=== PATIENT | female | born 1990 | race Caucasian/White ===

== ENCOUNTER 2017-09-12 20:51 | Emergency (ER) | payer BC, MEDICAID ==
[~2017-09-12] VITALS: Ht 162.6 cm; Wt 91.8 kg
[~2017-09-12 20:51] MED LIST: ACET50TA PO; ACET65TA OR; ANUS2.5C2 PR; CIPR25SS PO; CIPR500T4 OR; DOCU10ELUD PO; IBUP80TA PO; MOM30SS PO; NEUR300C PO; No Historical Meds; OXYC10TA97 OR; PERC7.5T8 OR; PRENTAB9 PO; SOMA350T PO; TIZA4CAP3 PO; [UNRECOGNIZED DRUG - CODE] PO
[2017-09-12] MEDS ORDERED: ZOFR4TAB3 PO (21:04)
[2017-09-12] MEDS ORDERED: NS 1,000 ML IV ONE (21:30)
[2017-09-12] MEDS ORDERED: ONDANSETRON 4MG/2ML VIAL (J2405) IV ONE (21:30)
[2017-09-12] MEDS ORDERED: MORPHINE 4 MG/ML 1ML SYRINGE IV PRN (21:30)
[2017-09-12 22:10] LABS: BASO % 0.2 % (0.0-1.0); EOS # 0.1 10^3/uL (0.0-0.50); EOS % 0.4 % (0.0-3.0); IMMATURE GRANULOCYTE % 0.4 % (0-0); LYMPH # 1.1 10^3/uL (1.5-6.5); LYMPH % 9.8 % (24.0-44.0); MEAN CORPUSCULAR HEMOGLOBIN 30.6 pg (27.0-33.0); MEAN CORPUSCULAR HGB CONC 34.5 g/dl (32.0-36.5); MEAN CORPUSCULAR VOLUME 88.6 fl (80.0-96.0); MONO # 0.4 10^3/uL (0.0-0.8); MONO % 3.6 % (0.0-5.0); NEUTROPHILS # 9.7 10^3/uL (1.8-7.7); NEUTROPHILS % 85.6 % (36.0-66.0); PLATELET COUNT, AUTOMATED 296 10^3/uL (150-450); RED CELL DISTRIBUTION WIDTH 12.1 % (11.5-14.5); WHITE BLOOD COUNT 11.3 10^3/uL (4.0-10.0)
[2017-09-12] MEDS ORDERED: KETOROLAC 30 MG/ML VIAL (J1885) IV ONE (22:15)
[2017-09-12 22:34] LABS: ALBUMIN 4.3 GM/DL (3.2-5.2); ALBUMIN/GLOBULIN RATIO 1.16 (1.00-1.93); ALKALINE PHOSPHATASE 69 U/L (45-117); ALT/SGPT 33 U/L (12-78); ANION GAP 6 MEQ/L (8-16); AST/SGOT 18 U/L (15-37); BILIRUBIN,DIRECT 0.2 MG/DL (0.0-0.2); BILIRUBIN,TOTAL 0.7 MG/DL (0.2-1.0); BLOOD UREA NITROGEN 13 MG/DL (7-18); CALCIUM LEVEL 8.7 MG/DL (8.5-10.1); CARBON DIOXIDE LEVEL 28 MEQ/L (21-32); CHLORIDE LEVEL 103 MEQ/L (98-107); GLOMERULAR FILTRATION RATE > 60.0 (>60); GLUCOSE, FASTING 95 MG/DL (70-105); POTASSIUM SERUM 3.2 MEQ/L (3.5-5.1); SODIUM LEVEL 137 MEQ/L (136-145)
--- NOTE | 2017-09-12 23:10 | REPUSA ---
CT of the abdomen and pelvis without contrast Clinical statement: Pain. Technique: Multiple axial CT images were obtained from the base of the lungs to the floor of the pelv is utilizing 5 mm axial slices without administration of contrast. Coronal and sagittal reconstructio ns were also obtained. Comparison: 06/12/2016. Findings: Chest: The visualized lung bases are clear. Abdomen: The kidneys are normal in size bilaterally. There aren't numerous low attenuation lesions wi thin both kidneys, likely representing cysts. Several tiny punctate nonobstructing stones are seen in the left kidney. There is no evidence of hydronephrosis. Numerous dense foci are seen throughout the gallbladder consistent with gallstones. There is no pericholecystic inflammatory changes or biliary ductal dilatation. The liver, spleen, pancreas, and adrenal glands are unremarkable. The aorta demons trates normal caliber and contour. There is no abdominal lymphadenopathy or ascites. Pelvis: The bowel is unremarkable, with no obstructive or inflammatory changes. The appendix is linda l. The urinary bladder is within normal limits. There is no pelvic lymphadenopathy or ascites. The ot her pelvic structures appear unremarkable. Bones: There are no suspicious osseous abnormalities seen. Surgical hardware in the lower thoracic an d upper lumbar spine is grossly intact. Impression: 1. Nonobstructing left renal nephrolithiasis. 2. Stable bilateral simple renal cysts. 3. Cholelithiasis without evidence of acute cholecystitis. 4. No obstructive or inflammatory bowel changes.
[2017-09-12 23:56] VITALS: BP 114/66
== END 2017-09-12 23:58 | disposition home or self-care (01) ==
LOC: M ED 20:51
DX: R10.9 Unspecified abdominal pain (principal); R19.7 Diarrhea, unspecified; N20.0 Calculus of kidney; K80.70 Calculus of gallbladder and bile duct without cholecystitis without obstruction; E28.2 Polycystic ovarian syndrome; Z98.890 Other specified postprocedural states; Z91.018 Allergy to other foods; Z91.030 Bee allergy status; Z88.2 Allergy status to sulfonamides
CPT/HCPCS: 74176; 80048; 80076; 81001; 81025; 83690; 85025; 96361; 96374; 96375; 99284; J1885; J2405

== ENCOUNTER → 2017-12-23 | Outpatient (REF) | payer BC, MEDICAID ==
[2017-12-23 17:35] LABS: INFLUENZA A AMPLIFICATION POSITIVE (NEGATIVE); INFLUENZA B AMPLIFICATION NEGATIVE (NEGATIVE); RSV AMPLIFICATION NEGATIVE (NEGATIVE)
== END ==
LOC: M LAB REF 16:35
DX: J11.1 Influenza due to unidentified influenza virus with other respiratory manifestations (principal)
CPT/HCPCS: 87631

== ENCOUNTER 2018-03-10 18:56 | Emergency (ER) | payer BC, MEDICAID ==
[2018-03-10] MEDS: ONDANSETRON 4MG/2ML VIAL (J2405) IV (20:30)
[2018-03-10] MEDS: KETOROLAC 30 MG/ML VIAL (J1885) IV (20:30)
[2018-03-10] MEDS: NS 1,000 ML IV (20:31)
[2018-03-10 20:36] LABS: KETONE, URINE AUTO RFX NEGATIVE (NEGATIVE); MUCUS, URINE RFX MODERATE (NEGATIVE); RBC, URINE AUTO RFX 43 /HPF (0-3); SPECIFIC GRAVITY UR AUTO RFX 1.017 (1.002-1.035); SQUAM EPITHELIAL CELL UR AURFX 9 /HPF (0-6)
[2018-03-10 20:40] LABS: LEUKOCYTE ESTERASE UR AUTO RFX 3+ (NEGATIVE); NITRITE, URINE AUTO RFX POSITIVE (NEGATIVE); WBC, URINE AUTO RFX TNTC /HPF (0-3)
[2018-03-10 20:41] LABS: BASO % 0.2 % (0.0-1.0); EOS # 0.1 10^3/uL (0.0-0.50); EOS % 0.6 % (0.0-3.0); HEMOGLOBIN 13.6 g/dl (12.0-15.5); IMMATURE GRANULOCYTE % 0.2 % (0-3.0); LYMPH # 2.8 10^3/uL (1.5-6.5); LYMPH % 22.7 % (24.0-44.0); MEAN CORPUSCULAR HEMOGLOBIN 30.7 pg (27.0-33.0); MEAN CORPUSCULAR VOLUME 90.3 fl (80.0-96.0); MONO # 0.7 10^3/uL (0.0-0.8); MONO % 5.3 % (0.0-5.0); NEUTROPHILS # 8.7 10^3/uL (1.8-7.7); PLATELET COUNT, AUTOMATED 299 10^3/uL (150-450); RED BLOOD COUNT 4.43 10^6/uL (4.00-5.40); RED CELL DISTRIBUTION WIDTH 12.5 % (11.5-14.5); WHITE BLOOD COUNT 12.3 10^3/uL (4.0-10.0)
[2018-03-10 20:50] LABS: ALBUMIN 4.5 GM/DL (3.2-5.2); ALBUMIN/GLOBULIN RATIO 1.07 (1.00-1.93); ALKALINE PHOSPHATASE 72 U/L (45-117); ALT/SGPT 22 U/L (12-78); ANION GAP 7 MEQ/L (8-16); AST/SGOT 15 U/L (7-37); BILIRUBIN,DIRECT 0.1 MG/DL (0.0-0.2); BILIRUBIN,TOTAL 0.5 MG/DL (0.2-1.0); BLOOD UREA NITROGEN 11 MG/DL (7-18); CALCIUM LEVEL 9.1 MG/DL (8.5-10.1); CARBON DIOXIDE LEVEL 29 MEQ/L (21-32); CHLORIDE LEVEL 105 MEQ/L (98-107); CREATININE FOR GFR 0.77 MG/DL (0.55-1.30); GLOMERULAR FILTRATION RATE > 60.0 (>60); GLUCOSE, FASTING 93 MG/DL (70-100); POTASSIUM SERUM 3.7 MEQ/L (3.5-5.1); SODIUM LEVEL 141 MEQ/L (136-145); TOTAL PROTEIN 8.7 GM/DL (6.4-8.2)
[2018-03-10] MEDS: cefTRIAXone SOD 1 GM in D5W MINI-BAG PLUS 50 ML IV (21:08)
== END 2018-03-10 22:01 | disposition home or self-care (01) ==
LOC: M ED 18:56
DX: N30.00 Acute cystitis without hematuria (principal); Q61.3 Polycystic kidney, unspecified; N20.0 Calculus of kidney; K80.20 Calculus of gallbladder without cholecystitis without obstruction; F33.9 Major depressive disorder, recurrent, unspecified; F41.9 Anxiety disorder, unspecified; Z86.69 Personal history of other diseases of the nervous system and sense organs; Z98.890 Other specified postprocedural states; Z88.2 Allergy status to sulfonamides; Z91.018 Allergy to other foods; Z91.030 Bee allergy status
CPT/HCPCS: J2405

== ENCOUNTER → 2018-04-25 | Outpatient (REF) | payer BC, OTHER, MEDICAID ==
[2018-04-25 16:25] LABS: URINE TOTAL PROTEIN 13.5 MG/DL (0-12)
[2018-04-25 20:23] LABS: CREATININE 24 HOUR, URINE 1287.5 MG/24HR (600-1800); TOTAL PROTEIN 24 HOUR URINE 168.7 MG/24HR (50-150); TOTAL VOLUME, URINE 1250 ML
== END ==
LOC: M LAB REF 15:27
DX: Z34.81 Encounter for supervision of other normal pregnancy, first trimester (principal); Z3A.09 9 weeks gestation of pregnancy
CPT/HCPCS: 81050

== ENCOUNTER → 2018-05-22 | Outpatient (REF) | payer BC, MEDICAID | LOC: M LAB REF 12:54 | DX: Z34.81 Encounter for supervision of other normal pregnancy, first trimester (principal) | CPT/HCPCS: 87086 ==

== ENCOUNTER → 2018-07-04 | Outpatient (CLI) | payer MEDICAID, BC | LOC: M RAD 09:29 | DX: Z34.82 Encounter for supervision of other normal pregnancy, second trimester (principal); Z36.89 Encounter for other specified antenatal screening; Z3A.19 19 weeks gestation of pregnancy | CPT/HCPCS: 76811 ==

== ENCOUNTER → 2018-07-24 | Outpatient (CLI) | payer MEDICAID | LOC: M RAD 10:02 | DX: O09.292 Supervision of pregnancy with other poor reproductive or obstetric history, second trimester (principal) | CPT/HCPCS: 76816 ==

== ENCOUNTER 2018-09-04 12:55 | Outpatient (CLI) | payer MEDICAID ==
[2018-09-04] MEDS: LACTATED RINGER'S 1000 ML IV ×2 (13:30→20:35)
[2018-09-04 13:56] LABS: APPEARANCE, URINE CLOUDY (CLEAR); BACTERIA, URINE AUTO 1+ (NEGATIVE); BILIRUBIN, URINE AUTO NEGATIVE (NEGATIVE); BLOOD, URINE BLOOD NEGATIVE (NEGATIVE); COLOR, URINE YELLOW (YELLOW); GLUCOSE, URINE (UA) AUTO NEGATIVE (NEGATIVE); KETONE, URINE AUTO NEGATIVE (NEGATIVE); LEUKOCYTE ESTERASE, URINE AUTO NEGATIVE (NEGATIVE); MUCUS, URINE SMALL (NEGATIVE); NITRITE, URINE AUTO NEGATIVE (NEGATIVE); PROTEIN, URINE AUTO NEGATIVE (NEGATIVE); RBC, URINE AUTO 0 /HPF (0-3); SPECIFIC GRAVITY URINE AUTO 1.017 (1.002-1.035); SQUAMOUS EPITHELIAL CELL UR AU 4 /HPF (0-6); UROBILINOGEN, URINE AUTO 0.2 mg/dL (0.0-2.0); WBC, URINE AUTO 0 /HPF (0-3)
[2018-09-04 14:09] LABS: TOTAL PROTEIN,RANDOM URINE 34.2 MG/DL (0.0-12.0)
[2018-09-04 15:33] LABS: HEMATOCRIT 35.6 % (36.0-47.0); HEMOGLOBIN 11.9 g/dl (12.0-15.5); MEAN CORPUSCULAR HEMOGLOBIN 31.6 pg (27.0-33.0); MEAN CORPUSCULAR HGB CONC 33.4 g/dl (32.0-36.5); MEAN CORPUSCULAR VOLUME 94.4 fl (80.0-96.0); PLATELET COUNT, AUTOMATED 183 10^3/uL (150-450); RED BLOOD COUNT 3.77 10^6/uL (4.00-5.40); RED CELL DISTRIBUTION WIDTH 12.6 % (11.5-14.5); WHITE BLOOD COUNT 17.4 10^3/uL (4.0-10.0)
[2018-09-04 16:00] LABS: ALT/SGPT 21 U/L (12-78); ANION GAP 9 MEQ/L (8-16); AST/SGOT 14 U/L (7-37); BILIRUBIN,TOTAL 0.3 MG/DL (0.2-1.0); BLOOD UREA NITROGEN 7 MG/DL (7-18); CALCIUM LEVEL 8.5 MG/DL (8.5-10.1); CARBON DIOXIDE LEVEL 25 MEQ/L (21-32); CHLORIDE LEVEL 107 MEQ/L (98-107); CREATININE FOR GFR 0.59 MG/DL (0.55-1.30); GLOMERULAR FILTRATION RATE > 60.0 (>60); GLUCOSE, FASTING 97 MG/DL (70-100); LDH LACTATE DEHYDROGENASE 144 U/L (84-246); PHOSPHORUS LEVEL 3.7 MG/DL (2.5-4.9); POTASSIUM SERUM 3.9 MEQ/L (3.5-5.1); SODIUM LEVEL 141 MEQ/L (136-145); URIC ACID 3.3 MG/DL (2.6-6.0)
[2018-09-04] MEDS: PROMETHAZINE INJ 25 MG/ML VIAL (J2550) IM (16:37)
[2018-09-04] MEDS: MORPHINE 10 MG/ML 1ML VIAL (J2270) SC (16:38)
[2018-09-04] MEDS: LR 1,000 ML IV ×2 (16:48→20:35)
[2018-09-04] MEDS: TAMSULOSIN 0.4 MG CAP PO (17:43)
[2018-09-04] MEDS: MORPHINE 10 MG/ML 1ML VIAL (J2270) IV ×3 (20:34→22:41)
[2018-09-05] MEDS: PERCOCET 5MG/325MG TAB PO ×4 (00:15→12:33)
[2018-09-05] MEDS: LR 1,000 ML IV ×2 (05:29→13:37)
[2018-09-05] MEDS ORDERED: ONDANSETRON 4 MG ORAL DISINTEGRATING TAB (Q0162 PER 1MG) PO (07:15)
[2018-09-05] MEDS: TAMSULOSIN 0.4 MG CAP PO (08:39)
== END 2018-09-05 18:20 | disposition home or self-care (01) ==
LOC: M LDO 12:55
DX: O26.892 Other specified pregnancy related conditions, second trimester (principal); R10.9 Unspecified abdominal pain; O99.619 Diseases of the digestive system complicating pregnancy, unspecified trimester; K80.20 Calculus of gallbladder without cholecystitis without obstruction; Z3A.26 26 weeks gestation of pregnancy
CPT/HCPCS: J2270

== ENCOUNTER → 2018-09-12 | Outpatient (CLI) | payer MEDICAID ==
[2018-09-12 15:24] LABS: GLUCOSE CHALLENGE TEST 1 HOUR 129 MG/DL (LESS THAN 140)
== END ==
LOC: M SMT 08:32
DX: Z36.89 Encounter for other specified antenatal screening (principal); Z3A.00 Weeks of gestation of pregnancy not specified
CPT/HCPCS: 82950

== ENCOUNTER → 2018-11-12 | Outpatient (CLI) | payer MEDICAID ==
[~2018-11-12] MED LIST changes: +CIPR-249 PO; +FERR325T3 PO; +FLOM0.4C39 PO; +IBUP-1114 PO; +MAPA500T2 PO; +OXYC1TAB23 PO; +TIZA4CAP PO; -TIZA4CAP3 PO; +TYLE-45 PO; +ZOFR4TAB14 PO
[2018-11-12 13:26] LABS: ALT/SGPT 17 U/L (12-78); BILIRUBIN,TOTAL 0.3 MG/DL (0.2-1.0); CREATININE FOR GFR 0.58 MG/DL (0.55-1.30); GLOMERULAR FILTRATION RATE > 60.0 (>60); LDH LACTATE DEHYDROGENASE 179 U/L (84-246); URIC ACID 3.5 MG/DL (2.6-6.0)
[2018-11-12 13:29] LABS: HEMATOCRIT 34.7 % (36.0-47.0); HEMOGLOBIN 11.5 g/dl (12.0-15.5); MEAN CORPUSCULAR HEMOGLOBIN 30.8 pg (27.0-33.0); MEAN CORPUSCULAR HGB CONC 33.1 g/dl (32.0-36.5); PLATELET COUNT, AUTOMATED 230 10^3/uL (150-450); RED BLOOD COUNT 3.73 10^6/uL (4.00-5.40); WHITE BLOOD COUNT 9.9 10^3/uL (4.0-10.0)
[2018-11-12 14:30] LABS: CREATININE,RANDOM URINE 59.4 MG/DL; TOTAL PROTEIN,RANDOM URINE 32.6 MG/DL (0.0-12.0)
== END ==
LOC: M SMT 09:03
PROVIDERS: ATTEND Advanced Practice Midwife
DX: Z34.83 Encounter for supervision of other normal pregnancy, third trimester (principal); Z36.89 Encounter for other specified antenatal screening

== ENCOUNTER 2018-11-20 09:38 | Inpatient (IN) | payer MEDICAID ==
[2018-11-20] VITALS (12 sets, daily range): BP systolic 132–162; BP diastolic 85–100
[~2018-11-20] VITALS: Ht 167.6 cm; Wt 93.3 kg
[~2018-11-20 09:38] MED LIST changes: -FERR325T3 PO; -IBUP-1114 PO
[2018-11-20] MEDS: miSOPROStol 50 MCG 1/2 TAB (S0191) SL SCH ×3 (10:28→18:41)
[2018-11-20 10:44] LABS: HEMATOCRIT 33.4 % (36.0-47.0); HEMOGLOBIN 11.4 g/dl (12.0-15.5); MEAN CORPUSCULAR HEMOGLOBIN 30.3 pg (27.0-33.0); MEAN CORPUSCULAR HGB CONC 34.1 g/dl (32.0-36.5); MEAN CORPUSCULAR VOLUME 88.8 fl (80.0-96.0); PLATELET COUNT, AUTOMATED 215 10^3/uL (150-450); RED BLOOD COUNT 3.76 10^6/uL (4.00-5.40); WHITE BLOOD COUNT 12.2 10^3/uL (4.0-10.0)
[2018-11-20 11:07] LABS: ALT/SGPT 12 U/L (12-78); BILIRUBIN,TOTAL 0.4 MG/DL (0.2-1.0); CREATININE FOR GFR 0.45 MG/DL (0.55-1.30); GLOMERULAR FILTRATION RATE > 60.0 (>60); LDH LACTATE DEHYDROGENASE 174 U/L (84-246); URIC ACID 3.2 MG/DL (2.6-6.0)
--- NOTE | 2018-11-20 11:13 | HPE ---
DATE: 11/20/2018 CHIEF COMPLAINT: Induction of labor secondary to preeclampsia. HISTORY OF PRESENT ILLNESS: Merary is a 28-year-old (G) 3, para (P) 2-0-0-1 at 37 weeks 2 days estimated gestation. Estimated date of confinement is 12/09/2018 confirmed by first trimester ultrasound of 04/24/2018. She is presenting for induction of labor secondary to preeclampsia. She received two doses of betamethasone last week. She denies any uterine contractions, leakage of fluid, bleeding, or discharge. She is feeling the baby move. LABS: Blood type is B positive. Group B streptococcus (GBS) negative. Rubella immune. HIV negative. Gonorrhea negative. Chlamydia negative. Hepatitis B surface antigen negative. VDRL nonreactive. Diabetes screen 129. Blood pressures in the office have ranged from 120 to 160 systolic over 62/92 diastolic. Total weight gain is 15 pounds. OB ULTRASOUND: 07/04/2018 anatomy showed an anterior placenta with a left choroid plexus cyst. 07/24/2018 followup anatomy showed left choroid plexus cyst resolved. PAST OBSTETRICAL HISTORY: 1. In 2010 she delivered a male at 42 weeks 1 day estimated gestational age via normal spontaneous vaginal delivery, forceps assisted, who weighed 9 pounds 9 ounces. The infant at 9 months secondary to infection and seizure. 2. In 2014 patient delivered a male infant at 39 weeks 2 days estimated gestational age via normal spontaneous delivery weighing 7 pounds 9 ounces and she was induced secondary to preeclampsia. PAST MEDICAL HISTORY: 1. Polycystic kidney disease, followed by Dr. Turner. 2. Renal stone. 3. History of preeclampsia. 4. Depression. MEDICATIONS: - vitamins and Tylenol as needed. PAST SURGICAL HISTORY: 2013 spinal fusion, eye surgery. PAST FAMILY HISTORY: Polycystic kidney disease and cardiac disease. ALLERGIES: SULFA MEDICATIONS - reaction is hives. SOCIAL HISTORY: Patient is single. Denies tobacco, alcohol, or drug use. EXAMINATION: VITAL SIGNS: Temperature 98.5, heart rate 125, blood pressure 139/100, respiratory rate 18. ABDOMEN: Gravid. STERILE VAGINAL EXAM: 2 cm dilated, 50% effaced, -2 station. MONITOR: Category 1 tracing, baseline is 140 beats per minute, moderate variability, positive accelerations, no decelerations. TOCO: No contractions. ASSESSMENT AND PLAN: 1. Intrauterine (IUP) at 37 and 2 is presenting for induction of labor secondary to preeclampsia. We will start with misoprostol. 2. Group B streptococcus (GBS) negative. Does not need penicillin. 3. Anticipate normal spontaneous vaginal delivery. My faculty preceptor for this patient encounter was physically present during the encounter and was fully available. All aspects of the patient interview, examination, medical decision making process, and medical care plan development were reviewed and approved by the faculty preceptor. The faculty preceptor is aware and concurs with the plan as stated in the body of this note and will attest to such by his/her cosignature.
[2018-11-20] MEDS: LR 1,000 ML IV SCH (20:20)
[2018-11-20] MEDS ORDERED: OXYTOCIN DRIP 30 UNITS in APPROPRIATE DILUENT 1 EA IV SCH (20:30)
[2018-11-21] VITALS (37 sets, daily range): BP systolic 116–163; BP diastolic 67–106
[2018-11-21] MEDS ORDERED: diphenhydrAMINE 50 MG CAP PO STA (02:51)
[2018-11-21] MEDS: LR 1,000 ML IV SCH (04:20)
--- NOTE | 2018-11-21 08:03 | IPNPDOC ---
Text Note Date of Service The patient was seen on 11/21/18. NOTE Feeling discouraged, remains comfortable with UC Pitocin @ 16mu UC Q 2-3 minutes x 60 seconds, mild FH 130, Cat I SVE 3/80/-2, AROM moderate clear fluid 0755 BP remains mildly elevated Continue IOL VS,Fishbone, I+O VS, Fishbone, I+O Laboratory Tests 11/20/18 10:21 Red Blood Count 3.76 L, Mean Corpuscular Volume 88.8, Mean Corpuscular Hemoglobin 30.3, Mean Corpuscular Hemoglobin Concent 34.1, Red Cell Distribution Width 12.8, Aspartate Amino Transf (AST/SGOT) 11, Alanine Aminotransferase (ALT/SGPT) 12, Lactate Dehydrogenase 174, Total Bilirubin 0.4, Uric Acid 3.2 Vital Signs Date Time Temp Pulse Resp B/P (MAP) Pulse Ox O2 Delivery O2 Flow Rate FiO2 11/21/18 06:06 95 140/88 (105) 11/20/18 18:33 98.5 18 Akilah Montero CNM Nov 21, 2018 08:03
[2018-11-21] MEDS: PRENATAL VITAMINS CHEWABLE TABLET PO SCH (09:00)
[2018-11-21] MEDS ORDERED: BUTORPHANOL 2 MG/ML INJ (J0595) IV ONE (11:30)
[2018-11-21] MEDS ORDERED: PROMETHAZINE INJ 25 MG/ML VIAL (J2550) IV ONE (11:30)
[2018-11-21] MEDS ORDERED: OXYTOCIN DRIP 30 UNITS in APPROPRIATE DILUENT 1 EA IV SCH (14:06)
[2018-11-21] MEDS ORDERED: MEASLES,MUMPS,RUBELLA VACCINE INJ (MMR-II) (90707) SC SCH (14:15)
[2018-11-21] MEDS ORDERED: DOCUSATE SODIUM 100 MG CAP PO PRN (14:15)
[2018-11-21] MEDS ORDERED: ANUSOL HC CREAM 30GM TOP PRN (14:15)
[2018-11-21] MEDS ORDERED: miSOPROStol 200 MCG TAB (S0191) PR ONE (14:15)
[2018-11-21] MEDS ORDERED: RHOGAM 300 MCG (1500 IU) INJ (J2790) IM SCH (14:15)
[2018-11-21] MEDS ORDERED: IBUPROFEN 800 MG TAB PO PRN (14:15)
[2018-11-21] MEDS ORDERED: DIBUCAINE 1% OINTMENT 30GM TOP PRN (14:15)
[2018-11-21] MEDS ORDERED: ACETAMINOPHEN 500 MG TAB PO PRN (14:15)
[2018-11-21 14:19] LABS: CORD GAS ABE A -3.2; CORD GAS HCO3 A 24.6 MEQ/L; CORD GAS O2 SAT A 53.1 %; CORD GAS PCO2 A 55.9 mmHg; CORD GAS PH A 7.262 UNITS; CORD GAS PO2 A 23.2 mmHg; CORD GAS SBC A 20.8 MEQ/L; CORD GAS TCO2 A 26.4 MEQ/L
[2018-11-21 14:21] LABS: CORD GAS ABE V -1.8; CORD GAS HCO3 V 22.5 MEQ/L; CORD GAS O2 SAT V 88.7 %; CORD GAS PCO2 V 37.4 mmHg; CORD GAS PH V 7.398 UNITS; CORD GAS SBC V 22.8 MEQ/L; CORD GAS TCO2 V 23.7 MEQ/L
--- NOTE | 2018-11-21 15:23 | DN ---
DATE OF DELIVERY: 11/21/2017 PREDELIVERY DIAGNOSES 1. 37 weeks 3 days estimated gestation. 2. Gestational hypertension. POSTDELIVERY DIAGNOSIS Delivered. PROCEDURES: Spontaneous vaginal delivery. PROVIDER: Tiffanie David D.O., PGY2 CHIP CRUSHER OPERATOR: Akilah Montero, Certified Nurse Shield Installer. ANESTHESIA: None. ESTIMATED BLOOD LOSS: 1000 mL. FINDINGS: Male infant weighing 7 pounds 13 ounces or 3550 grams, score 9 and 9. DELIVERY SUMMARY: After short second stage, the patient spontaneously delivered a 7 pounds 13 ounce male infant weighing 3550 grams without anesthesia at 1338 hours. The delivered right occipitoanterior (JANEE) and restituted to right occipitotransverse (ROT). There was no nuchal. The shoulders delivered with ease followed by the corpus. The infant cried spontaneously and was handed to the mother. scores were 9 and 9. The cord was doubly clamped and cut. The placenta was delivered spontaneously via Schultze mechanism at 1354 hours and appeared to be intact. The patient received intravenous (IV) Pitocin and 1 gram of Cytotec IN immediately after delivery of the placenta. Patient was inspected and no perineal or vaginal lacerations were noted. Sponges, instrument and needle counts were correct. The baby's name is Jose. My faculty preceptor for this patient encounter was physically present during the encounter and was fully available. All aspects of the patient interview, examination, medical decision-making process, and medical care plan development were reviewed and approved by the faculty preceptor. The faculty preceptor is aware and concurs with the plan as stated in the body of this note and will attest to such by his/her co-signature. DAMIAN
[2018-11-22 06:01] VITALS: BP 133/88
[2018-11-22 06:46] LABS: HEMATOCRIT 28.8 % (36.0-47.0); HEMOGLOBIN 9.6 g/dl (12.0-15.5); MEAN CORPUSCULAR HEMOGLOBIN 30.2 pg (27.0-33.0); MEAN CORPUSCULAR HGB CONC 33.3 g/dl (32.0-36.5); MEAN CORPUSCULAR VOLUME 90.6 fl (80.0-96.0); PLATELET COUNT, AUTOMATED 207 10^3/uL (150-450); RED BLOOD COUNT 3.18 10^6/uL (4.00-5.40); WHITE BLOOD COUNT 18.6 10^3/uL (4.0-10.0)
--- NOTE | 2018-11-22 07:21 | IPNPDOC ---
Text Note Date of Service The patient was seen on 11/22/18. NOTE PP #1 Feels well. Adequate pain management. Breast/bottle feeding. Voiding VSS, afebrile, mild hypertension Breasts soft, nipples intact Fundus firm, NT, down 1 FB Lochia rubra light without odor Perineum intact without edema H/H 9.6/ 28.8 PP #1 Routine care. Anticipate D/C kendra VS,Fishbone, I+O VS, Fishbone, I+O Laboratory Tests 11/22/18 06:22 Red Blood Count 3.18 L, Mean Corpuscular Volume 90.6, Mean Corpuscular Hemoglobin 30.2, Mean Corpuscular Hemoglobin Concent 33.3, Red Cell Distribution Width 13.0 Vital Signs Date Time Temp Pulse Resp B/P (MAP) Pulse Ox O2 Delivery O2 Flow Rate FiO2 11/22/18 06:01 97.8 95 18 133/88 (103) I&O- Last 24 Hours up to 6 AM 11/22/18 06:00 Output Total 1550 ml Balance -1550 ml Akilah Montero CNM Nov 22, 2018 07:21
[2018-11-22] MEDS: FERROUS SULFATE 325MG TAB PO SCH ×2 (08:43→20:46)
[2018-11-22] MEDS: PRENATAL VITAMINS CHEWABLE TABLET PO SCH (08:43)
[2018-11-22] MEDS ORDERED: INFLUENZA QUADRIVALENT PF VACCINE 0.5ML SYRINGE (90686) IM PRN (15:15)
[2018-11-22 18:02] VITALS: BP 128/87
[2018-11-23 06:04] VITALS: BP 128/79
[2018-11-23] MEDS: PRENATAL VITAMINS CHEWABLE TABLET PO SCH (08:37)
[2018-11-23] MEDS: FERROUS SULFATE 325MG TAB PO SCH (08:37)
--- NOTE | 2018-11-23 10:20 | NUR ---
Day 2 Status post , uncomplicated Subjective Pain is well controlled. Lochia decreasing and minimal. Voiding spontaneously. Tolerating a regular diet. Ambulating without any assistance. Denies any subjective fever/chills/nausea/vomiting/headache/visual changes/shortness of breath/chest pain. Breast and formula feeding. Objective Vitals: Normotensive, normal heart rate, afebrile, adequate urine output. Heart: regular, rate, and rhythm. no murmurs/gallops/rubs Lungs: clear to auscultation bilaterally, no wheezes/crackles/rales/ronchi Abd: soft, nontender, nondistended, uterine fundus is 2cm below umbilicus and firm Ext: no significant edema, nontender, negative Hilton's bilaterally. Assessment/Plan: day 2. Recovering well. Hemodynamically stable, afebrile, good pain control. -Routine care -Discharge to home today -Routine infectious, fever, pain, and bleeding precautions reviewed Annalise Bradshaw.O., F.A.C.O.G.
[2018-11-23] MEDS ORDERED: IBUP-1114 PO (12:23)
[2018-11-23] MEDS ORDERED: FERR325T3 PO (12:23)
[2018-11-23] MEDS ORDERED: MAPA500T2 PO (12:23)
== END 2018-11-23 15:35 | disposition home or self-care (01) | DRG 560 ==
LOC: M LDI 09:38 → M OBS 11-21 16:15
PROVIDERS: ADMIT Specialist; ATTEND Advanced Practice Midwife
PROC: 3E0P7GC Introduction of Other Therapeutic Substance into Female Reproductive, Via Natural or Artificial Opening (ICD-10-PCS; 2018-11-20)
PROC: 10E0XZZ Delivery of Products of Conception, External Approach (ICD-10-PCS; principal; 2018-11-21)
PROC: 10907ZC Drainage of Amniotic Fluid, Therapeutic from Products of Conception, Via Natural or Artificial Opening (ICD-10-PCS; 2018-11-21)
DX: O14.14 Severe pre-eclampsia complicating childbirth (principal); Z3A.37 37 weeks gestation of pregnancy; Z37.0 Single live birth

== ENCOUNTER → 2019-02-27 | Outpatient (REF) | payer MEDICAID ==
[~2019-02-27] MED LIST changes: -ACET50TA PO; -DOCU10ELUD PO; +DOCU5LIQ PO; +FERR325T3 PO; +IBUP-1114 PO; +MAPA500T17 PO
== END ==
LOC: M LAB REF 13:44
PROVIDERS: ATTEND Advanced Practice Midwife
DX: Z12.4 Encounter for screening for malignant neoplasm of cervix (principal)

== ENCOUNTER 2019-11-03 10:03 | Emergency (ER) | payer MEDICAID, OTHER ==
[~2019-11-03] VITALS: Ht 167.6 cm; Wt 66.4 kg
[2019-11-03] MEDS ORDERED: KETOROLAC 30 MG/ML VIAL (J1885) IV ONE (10:45)
[2019-11-03] MEDS ORDERED: ACETAMINOPHEN 500 MG TAB PO ONE (10:45)
[2019-11-03] MEDS ORDERED: NS 1,000 ML IV ONE ×2 (10:45→15:15)
[2019-11-03] MEDS ORDERED: diphenhydrAMINE INJ 50MG/ML VIAL (J1200) IV ONE (10:45)
[2019-11-03 11:27] LABS: BASO # 0.1 10^3/uL (0.0-0.2); BASO % 0.7 % (0.0-1.0); EOS # 0.1 10^3/uL (0.0-0.5); EOS % 1.1 % (0.0-3.0); HEMATOCRIT 44.1 % (36.0-47.0); HEMOGLOBIN 14.2 g/dl (12.0-15.5); LYMPH # 1.9 10^3/uL (1.5-5.0); LYMPH % 22.6 % (24.0-44.0); MEAN CORPUSCULAR HEMOGLOBIN 29.8 pg (27.0-33.0); MEAN CORPUSCULAR HGB CONC 32.2 g/dl (32.0-36.5); MEAN CORPUSCULAR VOLUME 92.5 fl (80.0-96.0); MONO # 0.4 10^3/uL (0.0-0.8); MONO % 4.5 % (0.0-5.0); NEUTROPHILS # 5.9 10^3/uL (1.5-8.5); NEUTROPHILS % 70.7 % (36.0-66.0); PLATELET COUNT, AUTOMATED 317 10^3/uL (150-450); RED BLOOD COUNT 4.77 10^6/uL (4.00-5.40); WHITE BLOOD COUNT 8.3 10^3/uL (4.0-10.0)
[2019-11-03 11:51] LABS: BLOOD UREA NITROGEN 10 MG/DL (7-18); CALCIUM LEVEL 9.1 MG/DL (8.5-10.1); CARBON DIOXIDE LEVEL 28 MEQ/L (21-32); CHLORIDE LEVEL 105 MEQ/L (98-107); GLOMERULAR FILTRATION RATE > 60.0 (>60); GLUCOSE, FASTING 88 MG/DL (70-100); POTASSIUM SERUM 4.2 MEQ/L (3.5-5.1); SODIUM LEVEL 139 MEQ/L (136-145)
[2019-11-03] MEDS ORDERED: MORPHINE 4 MG/ML 1ML VIAL/SYRINGE (J2270) IV ONE (12:15)
[2019-11-03] MEDS ORDERED: CYCLOBENZAPRINE 10 MG TAB PO ONE (12:15)
--- NOTE | 2019-11-03 12:45 | REP ---
CT brain: 11/03/2019. Indication: Headache. Comparison: 04/18/2014. Technique: Unenhanced axial CT images of the brain were obtained from skull base to vertex. Coronal reconstructions were provided. Findings: There is no acute intracranial hemorrhage, acute cortical infarction, mass effect, hydrocephalus or significant fluid within the visualized paranasal sinuses/mastoid air cells. There is a very small focus of extra-axial CSF attenuation along the medial aspect of the left frontal lobe with associated remodeling of the inner table most consistent with a tiny arachnoid cyst. Stable. Impression: No acute intracranial process. Electronically Signed by Andrew Begum DO 11/03/2019 12:36 P
--- NOTE | 2019-11-03 13:03 | REP ---
CT cervical spine: 11/03/2019. Indication: Neck pain. Comparison: None. Technique: Unenhanced axial CT images of the cervical spine were obtained with coronal and sagittal reconstructions provided. Findings: There is no acute fracture, subluxation or dislocation. There is straightening of the cervical lordosis which is likely positional. No areas of severe spinal canal narrowing are detected. Impression: No acute osseous cervical spine injuries. Electronically Signed by Andrew Begum DO 11/03/2019 12:54 P
[2019-11-03] MEDS ORDERED: diazePAM 10 MG/2 ML INJ (J3360) IV ONE (13:30)
[2019-11-03 15:45] VITALS: BP 117/79
== END 2019-11-03 16:04 | disposition home or self-care (01) ==
LOC: M ED 10:03
DX: R51 Headache (principal); Q61.3 Polycystic kidney, unspecified; Z88.2 Allergy status to sulfonamides
CPT/HCPCS: 70450; 72125; 80048; 85025; 96361; 96374; 96375; 99284; J1200; J1885; J2270; J3360

== ENCOUNTER → 2020-01-22 | Outpatient (REF) | payer OTHER ==
[2020-01-22 13:44] LABS: HEMATOCRIT 45.2 % (36.0-47.0); HEMOGLOBIN 14.9 g/dl (12.0-15.5); MEAN CORPUSCULAR HEMOGLOBIN 30.3 pg (27.0-33.0); MEAN CORPUSCULAR VOLUME 91.9 fl (80.0-96.0); PLATELET COUNT, AUTOMATED 278 10^3/uL (150-450); RED BLOOD COUNT 4.92 10^6/uL (4.00-5.40); WHITE BLOOD COUNT 8.7 10^3/uL (4.0-10.0)
[2020-01-22 14:05] LABS: ALBUMIN 4.7 GM/DL (3.2-5.2); ALT/SGPT 17 U/L (12-78); BILIRUBIN,TOTAL 0.4 MG/DL (0.2-1.0); BLOOD UREA NITROGEN 15 MG/DL (7-18); CALCIUM LEVEL 9.6 MG/DL (8.5-10.1); CARBON DIOXIDE LEVEL 29 MEQ/L (21-32); CHLORIDE LEVEL 104 MEQ/L (98-107); CREATININE FOR GFR 0.79 MG/DL (0.55-1.30); GLOMERULAR FILTRATION RATE > 60.0 (>60); GLUCOSE, FASTING 94 MG/DL (70-100); POTASSIUM SERUM 4.3 MEQ/L (3.5-5.1); SODIUM LEVEL 136 MEQ/L (136-145); TOTAL PROTEIN 8.5 GM/DL (6.4-8.2)
== END ==
LOC: M SFHCPLAZ 10:18
PROVIDERS: ATTEND Nurse Practitioner Adult Health
DX: Z00.00 Encounter for general adult medical examination without abnormal findings (principal); Z83.49 Family history of other endocrine, nutritional and metabolic diseases

== ENCOUNTER 2021-10-07 17:26 | Inpatient (IN) | payer OTHER ==
[~2021-10-07] VITALS: Ht 167.6 cm; Wt 77.6 kg
--- OUTSIDE RECORDS SUMMARY | 2021-10-07 17:39 | CCD ---
Author Author [facility] Organization [facility] Address Unknown Phone Unavailable Care Team Providers Care Hemmer Lockstitch Name Role Phone Maring, Jesus PA Unavailable Unavailable Maring, Jesus PA Unavailable Unavailable Maring, Jesus PA Unavailable Unavailable Maring, Jesus PA Unavailable Unavailable Maring, Jesus PA Unavailable Unavailable Maring, Jesus PA Unavailable Unavailable Maring, Jesus PA Unavailable Unavailable Maring, Jesus PA Unavailable Unavailable Maring, Jesus PA Unavailable Unavailable Maring, Jesus PA Unavailable Unavailable Maring, Jesus PA Unavailable Unavailable Maring, Jesus PA Unavailable Unavailable Maring, Jesus PA Unavailable Unavailable Maring, Jesus PA Unavailable Unavailable Maring, Jesus PA Unavailable Unavailable Maring, Jesus PA Unavailable Unavailable Re-disclosure Warning The records that you are about to access may contain information from federally-assisted alcohol or drug abuse programs. If such information is present, then the following federally mandated warning applies: This information has been disclosed to you from records protected by federal confidentiality rules (42 CFR part 2). The federal rules prohibit you from making any further disclosure of this information unless further disclosure is expressly permitted by the written consent of the person to whom it pertains or as otherwise permitted by 42 CFR part 2. A general authorization for the release of medical or other information is NOT sufficient for this purpose. The Federal rules restrict any use of the information to criminally investigate or prosecute any alcohol or drug abuse patient.The records that you are about to access may contain highly sensitive health information, the redisclosure of which is protected by Article 27-F of the [facility] Public Health law. If you continue you may have access to information: Regarding HIV / AIDS; Provided by facilities licensed or operated by the [facility] Office of Mental Health; or Provided by the [facility] Office for People With Developmental Disabilities. If such information is present, then the following [facility] mandated warning applies: This information has been disclosed to you from confidential records which are protected by state law. State law prohibits you from making any further disclosure of this information without the specific written consent of the person to whom it pertains, or as otherwise permitted by law. Any unauthorized further disclosure in violation of state law may result in a fine or long term sentence or both. A general authorization for the release of medical or other information is NOT sufficient authorization for further disc losure. Family History Family Member Name Family Member Gender Family Member Status Date o f Status Description Data Source(s) Unknown Female Diagnosis 02/09/2020 12:00:00 AM EDT [facility] ([facility]) Unknown Female Diagnosis 02/09/2020 12:00:00 AM EDT [facility] ([facility]) Unknown Unknown Problem [facility] ([facility]) Unknown Unknown Problem [facility] ([facility]) Unknown Unknown Problem [facility] ([facility]) Unknown Unknown Problem [facility] Encounters Encounter Providers Location Date Indications Data Source(s ) Outpatient Attender: Jesus NIXON 04/18/20 08:11:10 AM EDT - 04/18/2021 08:40:53 AM EDT [facility] ([facility] ) Medications Medication Brand Name Start Date Product Form Dose Route Admi nistrative Instructions Pharmacy Instructions Status Indications Reaction Description Data Source(s) 137 mcg (0.1 %) 04/18/2021 12:00:00 AM EDT aerosol,spray 30 SPRAY TWO SPRAYS IN EACH NOSTRIL TWICE A DAY FOR 5 DAYS SPRAY TWO SPRAYS IN EACH NOSTRIL TWICE A DAY FOR 5 DAYS SOLD: 04/18/2021 Ivana Dc samantha Insurance Providers Payer name Policy type / Coverage type Policy ID Covered democrat ID Covered democrat's relationship to villalobos Policy Villalobos Plan Information EXCELLUS C [id number] Unkn [id number] PROGRESSIVE E [id number] Self [id number] PROGRESSIVE E [id number] Self [id number] EXCELLUS C [id number] Unkn [id number] [place]/307 [id number] FA2 [id number] MEDICAID [id number] SP [id number] [facility] COMMUNITY PLAN MCDO [id number] SP [id number] [place] [employer] [id number] Self [id number] [place] [facility] Commercial [employer] Co. [id number] Self [id number] [place] P[place] 302/307 [id number] FA2 [id number] PROGRESSIVE CO NO FAULT P [id number] S RICH#[id number] EXCELLUS BCBS P [id number] S VYS [id number] [place] PPO 302/307 [id number] FA2 [id number] PROGRESSIVE CO NO FAULT [id number] SP [id number] PROGRESSIVE CO NO FAULT [id number] [place] SP [id number] [place] PA[place] UNAVAILABLE SP UNAVAILA BLE BLUE CROSS BLUE SHIELD -PHYSICIAN [id number] 19 [id number] BLUE CROSS BLUE SHIELD -O/P [id number] 19 [id number] UNHC COMMUNITY PLAN MCDO [id number] SP [id number] [facility]([place]) O [id number] S [id number] UNHC COMMUNITY PLAN MCDHMO [id number] SP [id number] MEDICAID M [id number] S [id number] MEDICAID [id number] SP [id number] EXCELLUS BCBS B [id number] O YND [id number] EXCELLUS BCBS B [id number] S YND [id number] [facility] Health Maintenance Organization (HMO) [id number] Self PROGRESSIVE CO WORKER COMP [id number] SP [id number] Problems, Conditions, and Diagnoses No Information Surgeries/Procedures No Information Results ID Date Data Source [id number] 12/02/2020 12:00:00 AM EST [facility] Name Value Range Interpretation Code Description Data Robyn rce(s) Supporting Document(s) SARS coronavirus 2 RNA [Presence] in Res piratory specimen by JAZZ with probe detection NEGATIVE [facility] This lab was ordered by Britton Jordan and reported by [facility]. ID Date Data Source [id number] 12/02/2020 12:00:00 AM EST [facility] Name Value Range Interpretation Code Description Data Robyn rce(s) Supporting Document(s) Carestart Rapid COVID Antigen Test Negative [facility] This lab was reported by Britton orellana. Procedure Social History No Information
[2021-10-07 18:06] LABS: BASO % 0.3 % (0.0-1.0); EOS % 0.1 % (0.0-3.0); HEMATOCRIT 37.7 % (36.0-47.0); LYMPH # 1.2 10^3/uL (1.5-5.0); LYMPH % 11.4 % (24.0-44.0); MEAN CORPUSCULAR HGB CONC 34.5 g/dl (32.0-36.5); MEAN CORPUSCULAR VOLUME 89.8 fl (80.0-96.0); MONO # 0.6 10^3/uL (0.0-0.8); MONO % 5.5 % (2.0-8.0); NEUTROPHILS % 82.4 % (36.0-66.0); PLATELET COUNT, AUTOMATED 263 10^3/uL (150-450); WHITE BLOOD COUNT 10.9 10^3/uL (4.0-10.0)
[2021-10-07 18:37] LABS: HCG, SERUM QUALITATIVE NEGATIVE (NEGATIVE)
[2021-10-07 18:38] LABS: ALT/SGPT 17 U/L (12-78); BILIRUBIN,DIRECT 0.2 MG/DL (0.0-0.2); BILIRUBIN,TOTAL 0.8 MG/DL (0.2-1.0); BLOOD UREA NITROGEN 14 MG/DL (7-18); CALCIUM LEVEL 9.2 MG/DL (8.5-10.1); CARBON DIOXIDE LEVEL 25 MEQ/L (21-32); CHLORIDE LEVEL 103 MEQ/L (98-107); CREATININE FOR GFR 0.83 MG/DL (0.55-1.30); GLOMERULAR FILTRATION RATE > 60.0 (>60); GLUCOSE, FASTING 108 MG/DL (70-100); LIPASE 108 U/L (73-393); POTASSIUM SERUM 3.4 MEQ/L (3.5-5.1); SODIUM LEVEL 136 MEQ/L (136-145); TOTAL PROTEIN 7.7 GM/DL (6.4-8.2)
--- OUTSIDE RECORDS SUMMARY | 2021-10-07 19:28 | CCD ---
Author Author [facility] Organization [facility] Address Unknown Phone Unavailable Care Team Providers Care Bobbin Sorter Name Role Phone Maring, Jesus PA Unavailable [...] is protected by Article 27-F of the [facility] Public Health law. If you continue you may have access to information: Regarding HIV / AIDS; Provided by facilities licensed or operated by the [facility] Office of Mental Health; or Provided by the [facility] Office for People With Developmental Disabilities. If such information is present, then the following [facility] mandated warning applies: This information has been [...] law may result in a fine or chcf sentence or both. A general authorization for the release of medical or other information is NOT sufficient authorization for further disc losure. Family History Family Member Name Family Member Gender Family Member Status Date o f Status Description Data Source(s) Unknown Female Diagnosis 02/09/2020 12:00:00 AM EDT [facility] ([facility]) Unknown Female Diagnosis 02/09/2020 12:00:00 AM EDT [facility] ([facility]) Unknown Unknown Problem [facility] ([facility]) Unknown Unknown Problem [facility] ([facility]) Unknown Unknown Problem [facility] ([facility]) Unknown Unknown Problem [facility] ([facility]) Encounters Encounter Providers Location Date Indications Data Source(s ) Outpatient Attender: Jesus NIXON 04/18/20 08:11:10 AM EDT - 04/18/2021 08:40:53 AM EDT [facility] ([facility] ) Medications Medication Brand Name [...] villalobos Policy Villalobos Plan Information EXCELLUS C [id number] Unkn [id number] PROGRESSIVE E [id number] Self [id number] PROGRESSIVE E [id number] Self [id number] EXCELLUS C [id number] Unkn [id number] [place] P[place]/307 [id number] FA2 [id number] MEDICAID [id number] SP [id number] [facility] COMMUNITY PLAN MCDO [id number] SP [id number] [employer]. [id number] Self [id number] [facility] Commercial Insurance Co. [id number] Self [id number] [place] P[place] 302/307 [id number] FA2 [id number] PROGRESSIVE CO NO FAULT P RICH#[id number] S RICH#[id number] EXCELLUS BCBS P [id number] S VYS [id number] [place] PPO 302/307 [id number] FA2 [id number] PROGRESSIVE CO NO FAULT [id number] SP [id number] PROGRESSIVE CO NO FAULT [id number] [place] SP [id number] [place] SELF PAY UNAVAILABLE SP UNAVAILA BLE BLUE CROSS BLUE SHIELD -PHYSICIAN [id number] 19 [id number] BLUE CROSS BLUE SHIELD -O/P [id number] 19 [id number] UNHC COMMUNITY PLAN MCDO [id number] SP [id number] [facility]([place]) O [id number] S [id number] UNHC COMMUNITY PLAN MCDHMO [id number] SP [id number] MEDICAID M [id number] S [id number] MEDICAID [id number] SP [id number] EXCELLUS BCBS B [id number] O YND [id number] EXCELLUS BCBS B [id number] S YND [id number] [facility] Health Maintenance Organization (HMO) [id number] Self PROGRESSIVE CO WORKER COMP [id number] SP [id number] Problems, Conditions, and Diagnoses No Information Surgeries/Procedures No Information Results ID Date Data Source [id number] 12/02/2020 12:00:00 AM EST [facility] Name Value Range Interpretation Code Description Data Robyn rce(s) Supporting Document(s) SARS coronavirus 2 RNA [Presence] in Res piratory specimen by JAZZ with probe detection NEGATIVE [facility] This lab was ordered by Britton Jordan and reported by [facility]. ID Date Data Source [id number] 12/02/2020 12:00:00 AM EST [facility] Name Value Range Interpretation Code Description Data Robyn rce(s) Supporting Document(s) Carestart Rapid COVID Antigen Test Negative [facility] This lab was reported by Britton orellana. Procedure Social History No Information
[2021-10-07] MEDS ORDERED: KETOROLAC 30 MG/ML 1ML VIAL IV ONE (20:55)
[2021-10-07] MEDS ORDERED: KETOROLAC 30 MG/ML 1ML VIAL IM ONE (21:00)
--- NOTE | 2021-10-07 21:20 | REPVR ---
PROCEDURE INFORMATION: Exam: CT Abdomen And Pelvis Without Contrast Exam date and time: 10/07/2021 8:12 PM Age: 31 years old Clinical indication: Abdominal pain; Flank; Other: Bilat; Additional info: Flank pain TECHNIQUE: Imaging protocol: Computed tomography of the abdomen and pelvis without contrast. Axial, coronal and sagittal reformatted images were created and reviewed. Radiation optimization: All CT scans at this facility use at least one of these dose optimization techniques: automated exposure control; mA and/or kV adjustment per patient size (includes targeted exams where dose is matched to clinical indication); or iterative reconstruction. COMPARISON: CT ABD PELVIS W/O CONTRAST 03/10/2018 8:19 PM FINDINGS: Liver: Unremarkable. Gallbladder and bile ducts: Cholelithiasis. Pancreas: Unremarkable. Spleen: Unremarkable. Adrenal glands: Normal. No mass. Kidneys and ureters: Simple bilateral renal cysts, measuring up to 3.8 x 3.4 cm on the left (no follow-up is indicated based on the imaging appearance). Nonobstructing left renal calculus. Subtle left perinephric/periureteral edema. No hydronephrosis. Stomach and bowel: Scattered colonic diverticula without evidence of diverticulitis. No obstruction. No bowel wall thickening. No pneumatosis. Appendix: Normal. Intraperitoneal space: No free fluid. No organized fluid collection. No free air. Vasculature: Unremarkable. No aneurysm. Lymph nodes: No pathologically enlarged lymph nodes. Urinary bladder: Unremarkable as visualized. Reproductive: Unremarkable. Bones/joints: No acute osseous abnormality. Chronic deformity of the T11 and T12 vertebrae. Status post T9-L2 posterior fusion. Soft tissues: Unremarkable. IMPRESSION: 1. Subtle left perinephric/periureteral edema without hydronephrosis. Infection/pyelonephritis cannot be excluded without intravenous contrast. A recently passed stone could produce a similar appearance. 2. Additional findings, as above. COMMENTS: Consistent with the [employer]'s Incidental Findings Committee white paper (J Am Sandi Radiol 2018): Any incidental renal lesion less than 1 cm or classified as too small to characterize, or any incidental cystic renal lesion characterized as simple-appearing, is likely benign. No follow-up imaging is recommended for these lesions per consensus recommendations based on imaging criteria. Electronically signed by: Gabriel Sofia On 10/07/2021 21:20:35 PM
[2021-10-07] MEDS ORDERED: CIPROFLOXACIN 500MG TABLET PO ONE (22:15)
[2021-10-07] MEDS ORDERED: LIDOCAINE 1% SDV 5ML VIAL DILUENT ONE (22:15)
[2021-10-07] MEDS ORDERED: cefTRIAXone SOD 1GM VIAL (J0696 PER 250MG) IM ONE (22:15)
[2021-10-07] MEDS ORDERED: ACETAMINOPHEN 325 MG TAB PO ONE (22:25)
[2021-10-07] MEDS ORDERED: CIPROFLOXACIN 400 MG in IV 1 EA IV ONE (22:45)
[2021-10-07] MEDS ORDERED: ONDANSETRON 4MG/2ML VIAL IV ONE (22:45)
[2021-10-07] MEDS ORDERED: NS 1,000 ML IV ONE (22:45)
[2021-10-07] MEDS ORDERED: HOME MED LIST COMPLETE! XX SCH (22:50)
--- OUTSIDE RECORDS SUMMARY | 2021-10-07 23:48 | CCD ---
Author Author [facility] Organization [facility] Address Unknown Phone Unavailable Care Team Providers Care Transportation Superintendent Name Role Phone Maring, Jesus PA Unavailable [...] is protected by Article 27-F of the [facility] Public Health law. If you continue you may have access to information: Regarding HIV / AIDS; Provided by facilities licensed or operated by the [facility] Office of Mental Health; or Provided by the [facility] Office for People With Developmental Disabilities. If such information is present, then the following [facility] mandated warning applies: This information has [...] law may result in a fine or senior care sentence or both. A general authorization for the release of medical or other information is NOT sufficient authorization for further disc losure. Family History Family Member Name Family Member Gender Family Member Status Date o f Status Description Data Source(s) Unknown Female Diagnosis 02/09/2020 12:00:00 AM EDT [facility] ([facility]) Unknown Female Diagnosis 02/09/2020 12:00:00 AM EDT [facility] ([facility]) Unknown Unknown Problem [facility] ([facility]) Unknown Unknown Problem [facility] ([facility]) Unknown Unknown Problem [facility] ([facility]) Unknown Unknown Problem [facility] Encounters Encounter Providers Location Date Indications Data Source(s ) Outpatient Attender: Jesus NIXON 04/18/20 08:11:10 AM EDT - 04/18/2021 08:40:53 AM EDT [facility] ([facility] ) Medications Medication Brand Name [...] type / Coverage type Policy ID Covered republican ID Covered republican's relationship to villalobos Policy Villalobos Plan Information EXCELLUS C [id number] Unkn [id number] PROGRESSIVE E [id number] Self [id number] PROGRESSIVE E [id number] Self [id number] EXCELLUS C [id number] Unkn [id number] [place]/[id number] MEDICAID [id number] SP [id number] [facility] COMMUNITY PLAN MCDO [id number] SP [id number] [employer] [id number] Self [id number] [facility] Commercial [employer] Co. [id number] Self [id number] [place]/307 [id number] PROGRESSIVE CO NO FAULT P [id number] S RICH#[id number] EXCELLUS BCBS P [id number] S [id number] [id number] [place] PPO 302/307 [id number] PROGRESSIVE CO NO FAULT [id number] SP [id number] PROGRESSIVE CO NO FAULT [id number] [place] SP [id number] [place] S[place]F [place]Y UNAVAILABLE SP UNAVAILA BLE BLUE CROSS BLUE SHIELD -PHYSICIAN [id number] BLUE CROSS BLUE SHIELD -O/P [id number] 19 [id number] [employer] COMMUNITY PLAN MCDO [id number] SP [id number] [facility]) O [id number] S [id number] [employer] COMMUNITY PLAN MCDHMO [id number] SP [id number] MEDICAID M [id number] S [id number] MEDICAID [id number] SP [id number] EXCELLUS BCBS B [id number] O [id number] EXCELLUS BCBS B [id number] S [id number] [facility] Health Maintenance Organization (HMO) [id number] Self PROGRESSIVE CO WORKER COMP [id number] SP [id number] Problems, Conditions, and Diagnoses No Information Surgeries/Procedures No Information Results ID Date Data Source [id number] 12/02/2020 12:00:00 AM EST [facility] Name Value Range Interpretation Code Description Data Robyn rce(s) Supporting Document(s) SARS coronavirus 2 RNA [Presence] in Res piratory specimen by JAZZ with probe detection NEGATIVE [facility] This lab was ordered by Britton Jordan and reported by [facility]. ID Date Data Source [id number] 12/02/2020 12:00:00 AM EST [facility] Name Value Range Interpretation Code Description Data Robyn rce(s) Supporting Document(s) [facility] Rapid COVID Antigen Test Negative [facility] This lab was reported by Britton orellana. Procedure Social History No Information
[2021-10-08 00:33] LABS: RSV AMPLIFICATION NEGATIVE (NEGATIVE)
[2021-10-08] MEDS: ACETAMINOPHEN TAB 650MG DOSE (2X325MG) PO PRN ×4 (02:40→22:06)
[2021-10-08] MEDS: NS 1,000 ML IV SCH ×2 (02:40→09:17)
[2021-10-08] MEDS ORDERED: POTASSIUM CHLORIDE 10MEQ SR TABLET PO ONE (03:15)
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
[2021-10-08 06:00] VITALS: BP 112/75
[2021-10-08] MEDS ORDERED: NS 1,000 ML IV ONE (06:00)
--- NOTE | 2021-10-08 09:03 | IPNPDOC ---
Text Note Date of Service The patient was seen on 10/08/21. NOTE Subjective: 31-year-old female presented with complaints of back pain. She is noted to have leukocytosis and was febrile. Her UA was concerning for a urinary tract infection, and CT scan of the abdomen pelvis was suspicious for pyelonephritis. This morning, she reports improvement in her back pain. She continues to have some nausea. She also reports urinating without difficulty and denied frequency, dysuria, and urgency. She wanted to go home but was explained cult ures are pending and it would be appropriate to monitor her for at least 24 hours to ensure she remains afebrile and is also able to tolerate a diet. Review of systems: 10 point review of system was negative except for what is noted in the HPI Physical exam: General: Lying in bed, no acute distress Head/Neck/Throat: Trachea midline, mucous membranes moist Eyes: Sclera anicteric, PERRLA Thorax: Normal respiratory effort on room air, lungs clear to auscultation bilaterally, no wheezes/rales/rhonchi Cardiovascular: Normal rate, regular rhythm, normal S1, S2; no S3, S4, rubs/gallops/murmurs Abdomen: Bowel sounds present, soft/nontender/nondistended Genitourinary: No CVA tenderness, no Shoemaker in place Musculoskeletal: Moving all extremities, no edema Skin: Warm, dry Neurologic: AAOx3, speech fluent and goal-directed, no focal deficits, grossly intact Labs: See below Imaging: Please see imaging section Assessment/plan: #Pyelonephritis/UTI -Resented with CVA tenderness and UA consistent with urinary tract infection. CT could not r/o pylo, will obtain ct with iv contrast. Continue with ceftriaxone, until cultures have resulted to narrow ab. #Nephrolithiasis -2 mm nonobstructing left renal calculus these should spontaneously pass. #Polycystic kidney disease -Stable appearing cysts appreciated on CT scan. #Electrolyte abnormality -Potassium has been repleted #DVT prophylaxis -Lovenox VS,Fishbone, I+O VS, Fishbone, I+O Laboratory Tests 10/07/21 17:55 Vital Signs Date Time Temp Pulse Resp B/P (MAP) Pulse Ox O2 Delivery O2 Flow Rate FiO2 10/08/21 06:00 99.4 120 20 112/75 (87) 97 10/08/21 01:18 Room Air I&O- Last 24 Hours up to 6 AM 10/08/21 06:00 Intake Total 2000 ml Output Total 580 ml Balance 1420 ml JAC MCKENZIE M.D. Oct 08, 2021 09:03
[2021-10-08] MEDS: ENOXAPARIN 40MG/0.4ML SYRINGE (J1650 PER 10MG) SC SCH (09:16)
[2021-10-08] MEDS: LACTOBACILLUS ACIDOPHILUS CAP (BACID) PO SCH (09:16)
[2021-10-08] MEDS ORDERED: ISOVUE-370 76% 100ML VIAL As Ordered ONE (09:26)
--- NOTE | 2021-10-08 10:12 | REP ---
INDICATION: r/o pylo. COMPARISON: 10/07/2021, 03/10/2018 TECHNIQUE: Axial contrast-enhanced images from the lung bases to the pubic symphysis using 100 cc Isovue 370 intravenous contrast material. Delayed images of the abdomen along with coronal and sagittal reformations obtained. This CT examination was performed using the following dose reduction techniques: Automated exposure control, adjustment of mA and/or kv according to the patient's size, and the use of iterative reconstruction technique. FINDINGS: The kidneys demonstrate bilateral simple appearing cysts consistent with the given history of polycystic kidney disease along with 2 mm nonobstructing left renal calculus and mild bilateral extrarenal pelvises. Hazy somewhat heterogeneous enhancement to the left renal parenchyma with mild associated perinephric stranding compatible with pyelonephritis. No perinephric fluid collection or abscess identified. Liver, spleen, pancreas, and bilateral adrenal glands are normal. Cholelithiasis noted without acute cholecystitis. The enteric system including stomach, small, and large bowel appears normal. No evidence for obstruction or acute inflammatory process. Normal terminal ileum and appendix are identified in the right lower quadrant. Pelvis demonstrates normal bladder and age-appropriate uterus/adnexa. No ascites. No free air. No intraperitoneal or retroperitoneal adenopathy. Abdominal aorta and vasculature appear normal. Musculoskeletal structures are intact and without acute osseous abnormality. Hill rods through the thoracolumbar spine again noted. Lung bases are clear. IMPRESSION: Findings consistent with left pyelonephritis. Polycystic kidney disease. Cholelithiasis. <Electronically signed by Girish Peacock > 10/08/21 2252
[2021-10-08] MEDS: ONDANSETRON 4MG/2ML VIAL IV PRN ×2 (13:45→22:06)
[2021-10-08] MEDS ORDERED: LEVO750T13 PO (15:05)
[2021-10-08 15:30] VITALS: BP 130/80
[2021-10-08] MEDS ORDERED: IBUPROFEN 400MG TAB PO ONE (16:00)
[2021-10-08 22:00] VITALS: BP 121/70
[2021-10-08] MEDS ORDERED: cefTRIAXone SOD 1 GM in D5W MINI-BAG PLUS 50 ML IV SCH (23:00)
[2021-10-09] MEDS ORDERED: diphenhydrAMINE 25MG CAP PO PRN (05:30)
[2021-10-09] MEDS: ACETAMINOPHEN TAB 650MG DOSE (2X325MG) PO PRN (05:43)
[2021-10-09 06:00] VITALS: BP 137/76
[2021-10-09 06:24] LABS: HEMATOCRIT 37.8 % (36.0-47.0); HEMOGLOBIN 12.9 g/dl (12.0-15.5); MEAN CORPUSCULAR HEMOGLOBIN 30.8 pg (27.0-33.0); MEAN CORPUSCULAR HGB CONC 34.1 g/dl (32.0-36.5); MEAN CORPUSCULAR VOLUME 90.2 fl (80.0-96.0); PLATELET COUNT, AUTOMATED 225 10^3/uL (150-450); RED BLOOD COUNT 4.19 10^6/uL (4.00-5.40); WHITE BLOOD COUNT 14.8 10^3/uL (4.0-10.0)
[2021-10-09 06:48] LABS: BLOOD UREA NITROGEN 5 MG/DL (7-18); CALCIUM LEVEL 8.7 MG/DL (8.5-10.1); CARBON DIOXIDE LEVEL 25 MEQ/L (21-32); CHLORIDE LEVEL 105 MEQ/L (98-107); CREATININE FOR GFR 0.73 MG/DL (0.55-1.30); GLOMERULAR FILTRATION RATE > 60.0 (>60); GLUCOSE, FASTING 112 MG/DL (70-100); PHOSPHORUS LEVEL 1.2 MG/DL (2.5-4.9); POTASSIUM SERUM 3.2 MEQ/L (3.5-5.1); SODIUM LEVEL 137 MEQ/L (136-145)
[2021-10-09] MEDS: LACTOBACILLUS ACIDOPHILUS CAP (BACID) PO SCH (09:25)
[2021-10-09] MEDS: ENOXAPARIN 40MG/0.4ML SYRINGE (J1650 PER 10MG) SC SCH (09:25)
[2021-10-09] MEDS: POTASSIUM CHLORIDE 10MEQ SR TABLET PO SCH ×2 (10:28→12:30)
[2021-10-09] MEDS ORDERED: K-PHOS ORIGINAL (POT.ACID PHOSPHATE) 500MG TAB PO ONE (12:00)
[2021-10-09 14:00] VITALS: BP 134/80
--- NOTE | 2021-10-09 14:42 | IPNPDOC ---
Text Note Date of Service The patient was seen on 10/09/21. NOTE 31-year-old female presented with complaints of back pain. She is noted to have leukocytosis and was febrile. Her UA was concerning for a urinary tract infection, and CT scan of the abdomen pelvis was suspicious for pyelonephritis. Patient reports feeling well today and felt she was getting her appetite back. She denied nausea, vomiting, abdominal pain, back pain, chest pain, shortness of breath, problem with urination and bowel movements. Review of systems: 10 point review of system was negative except for what is noted in the HPI Physical exam: General: Lying in bed, no acute distress Head/Neck/Throat: Trachea midline, mucous membranes moist Eyes: Sclera anicteric, PERRLA Thorax: Normal respiratory effort on room air, lungs clear to auscultation bilaterally, no wheezes/rales/rhonchi Cardiovascular: Normal rate, regular rhythm, normal S1, S2; no S3, S4, ru bs/gallops/murmurs Abdomen: Bowel sounds present, soft/nontender/nondistended Genitourinary: No CVA tenderness, no Shoemaker in place Musculoskeletal: Moving all extremities, no edema Skin: Warm, dry Neurologic: AAOx3, speech fluent and goal-directed, no focal deficits, grossly intact Labs: See below Imaging: Please see imaging section Assessment/plan: #Pyelonephritis/UTI -CT scan positive for pyelonephritis. She had episodes of fevers yesterday. Change antibiotics to levofloxacin based on sensitivities. #Nephrolithiasis -2 mm nonobstructing left renal calculus these should spontaneously pass. #Polycystic kidney disease -Stable appearing cysts appreciated on CT scan. #Electrolyte abnormality -Potassium has been repleted #DVT prophylaxis -Lovenox Disposition: If patient's blood cultures remain negative and patient remains afebrile she can be discharged home. VS,Fishbone, I+O VS, Fishbone, I+O Laboratory Tests 10/09/21 05:43 Vital Signs Date Time Temp Pulse Resp B/P (MAP) Pulse Ox O2 Delivery O2 Flow Rate FiO2 10/09/21 06:00 98.0 82 18 137/76 (96) 99 Room Air I&O- Last 24 Hours up to 6 AM 10/09/21 05:59 Intake Total 3030 ml Output Total 1400 ml Balance 1630 ml JAC MCKENZIE M.D. Oct 09, 2021 14:42
[2021-10-09] MEDS ORDERED: LevoFLOXacin IV 750 MG in IV 1 EA IV SCH (16:00)
[2021-10-09] MEDS ORDERED: EXCEDRIN MIGRAINE TABLET PO ONE (16:00)
[2021-10-09 20:00] VITALS: BP 132/84
[2021-10-10 05:48] VITALS: BP 134/80
[2021-10-10 05:56] LABS: HEMATOCRIT 37.9 % (36.0-47.0); HEMOGLOBIN 12.8 g/dl (12.0-15.5); MEAN CORPUSCULAR HEMOGLOBIN 30.3 pg (27.0-33.0); MEAN CORPUSCULAR HGB CONC 33.8 g/dl (32.0-36.5); MEAN CORPUSCULAR VOLUME 89.6 fl (80.0-96.0); PLATELET COUNT, AUTOMATED 223 10^3/uL (150-450); RED BLOOD COUNT 4.23 10^6/uL (4.00-5.40)
[2021-10-10 06:33] LABS: BLOOD UREA NITROGEN 8 MG/DL (7-18); CALCIUM LEVEL 8.8 MG/DL (8.5-10.1); CARBON DIOXIDE LEVEL 25 MEQ/L (21-32); CHLORIDE LEVEL 107 MEQ/L (98-107); CREATININE FOR GFR 0.55 MG/DL (0.55-1.30); GLOMERULAR FILTRATION RATE > 60.0 (>60); GLUCOSE, FASTING 105 MG/DL (70-100); MAGNESIUM LEVEL 2.2 MG/DL (1.8-2.4); PHOSPHORUS LEVEL 2.6 MG/DL (2.5-4.9); POTASSIUM SERUM 4.1 MEQ/L (3.5-5.1); SODIUM LEVEL 141 MEQ/L (136-145)
[2021-10-10] MEDS: ENOXAPARIN 40MG/0.4ML SYRINGE (J1650 PER 10MG) SC SCH (07:48)
[2021-10-10] MEDS: LACTOBACILLUS ACIDOPHILUS CAP (BACID) PO SCH (08:19)
[2021-10-10] MEDS ORDERED: LEVO750T13 PO (08:59)
--- NOTE | 2021-10-10 09:02 | DS.PDOC ---
Discharge Summary General Date of Admission Oct 07, 2021 at 23:09 Date of Discharge 10/10/21 Discharge Summary ADMITTING DIAGNOSES: 1. Urinary tract infection DISCHARGE DIAGNOSES: 1. Pyelonephritis COMPLICATIONS/CHIEF COMPLAINT: Pyelonephritis. HOSPITAL COURSE: , presented to the emergency room department at [facility] on 10/08/2021 with complaints that have back pain. She has a past medical history of migraines, nephrolithiasis, PCOS, and spinal fusion. In the emergency room department she was noted to be febrile with CVA tenderness. In the emergency room department she had an episode of emesis, and was found to be febrile with leukocytosis. On exam she had CVA tenderness. A CT scan noted evidence of pyelonephritis. Therefore she was admitted for IV antibiotics. She will be discharged home on levofloxacin. At the time of discharge all symptoms had resolved. It should be noted on CT scan there was evidence of polycystic kidney disease. She was asked to follow-up with her primary care physician for ongoing monitoring and management. At the time of discharge patient's symptoms had resolved. DISCHARGE MEDICATIONS: Please see below. ALLERGIES: Please see below. PHYSICAL EXAMINATION ON DISCHARGE: VITAL SIGNS: Please see below. General: Lying in bed, no acute distress Head/Neck/Throat: Trachea midline, mucous membranes moist Eyes: Sclera anicteric, PERRLA Thorax: Normal respiratory effort on room air, lungs clear to auscultation bilaterally, no wheezes/rales/rhonchi Cardiovascular: Normal rate, regular rhythm, normal S1, S2; no S3, S4, rubs/gallops/murmurs Abdomen: Bowel sounds present, soft/nontender/nondistended Genitourinary: No CVA tenderness, no Shoemaker in place Musculoskeletal: Moving all extremities, no edema Skin: Warm, dry Neurologic: AAOx3, speech fluent and goal-directed, no focal deficits, grossly intact LABORATORY DATA: Please see below. IMAGING: CT ABD & PELVIS WITH CONTRAST FINDINGS: The kidneys demonstrate bilateral simple appearing cysts consistent with the given history of polycystic kidney disease along with 2 mm nonobstructing left renal calculus and mild bilateral extrarenal pelvises. Hazy somewhat heterogeneous enhancement to the left renal parenchyma with mild associated perinephric stranding compatible with pyelonephritis. No perinephric fluid collection or abscess identified. Liver, spleen, pancreas, and bilateral adrenal glands are normal. Cholelithiasis noted without acute cholecystitis. The enteric system including stomach, small, and large bowel appears normal. No evidence for obstruction or acute inflammatory process. Normal terminal ileum and appendix are identified in the right lower quadrant. Pelvis demonstrates normal bladder and age-appropriate uterus/adnexa. No ascites. No free air. No intraperitoneal or retroperitoneal adenopathy. Abdominal aorta and vasculature appear normal. Musculoskeletal structures are intact and without acute osseous abnormality. Hill rods through the thoracolumbar spine again noted. Lung bases are clear. IMPRESSION: Findings consistent with left pyelonephritis. Polycystic kidney disease. Cholelithiasis. PROGNOSIS: Good ACTIVITY: As tolerated DIET: Regular ITEMS TO FOLLOWUP ON ON OUTPATIENT: 1. As instructed above DISCHARGE CONDITION: Stable TIME SPENT ON DISCHARGE: 25 minutes. Vital Signs/I&Os Vital Signs Date Time Temp Pulse Resp B/P (MAP) Pulse Ox O2 Delivery O2 Flow Rate FiO2 10/10/21 05:48 97.8 92 18 134/80 (98) 99 Room Air I&O- Last 24 Hours up to 6 AM 10/10/21 06:00 Intake Total 1440 ml Output Total 0 ml Balance 1440 ml Laboratory Data Labs 24H Laboratory Tests 2 10/10/21 05:42: Nucleated Red Blood Cells % (auto) 0.0, Anion Gap 9, Glomerular Filtration Rate > 60.0, Calcium Level 8.8, Phosphorus Level 2.6#, Magnesium Level 2.2 CBC/BMP Laboratory Tests 10/10/21 05:42 Microbiology Microbiology 10/08/21 Blood Culture - Preliminary, Resulted No Growth after 48 hours. All Specime... 10/08/21 Blood Culture - Preliminary, Resulted No Growth after 48 hours. All Specime... 10/07/21 Urine Culture - Final, Complete Escherichia Coli Discharge Medications Scheduled Levofloxacin (Levofloxacin) 750 Mg Tablet, 1 TAB PO DAILY Allergies Coded Allergies: AVACADO (Verified Allergy, Unknown, hives, 09/12/17) Sulfa (Sulfonamide Antibiotics) (Verified Allergy, Unknown, hives, 11/03/19) bee pollen (Verified Allergy, Unknown, hives, 11/03/19) caramel (Verified Allergy, Unknown, hives, 11/03/19) lactose (Verified Adverse Reaction, Unknown, diarrhea, 11/03/19) JAC MCKENZIE M.D. Oct 10, 2021 09:02
== END 2021-10-10 10:45 | disposition home or self-care (01) | DRG 463 ==
LOC: M ED 17:26 → M ED INP 23:09 → ENRESERV 10-08 00:59 → M MS5PR 10-08 01:50
PROVIDERS: ADMIT Internal Medicine; ATTEND Internal Medicine
DX: N13.6 Pyonephrosis (principal); N20.0 Calculus of kidney; G43.909 Migraine, unspecified, not intractable, without status migrainosus; E28.2 Polycystic ovarian syndrome; B96.20 Unspecified Escherichia coli [E. coli] as the cause of diseases classified elsewhere; E73.9 Lactose intolerance, unspecified; E87.6 Hypokalemia; Z88.2 Allergy status to sulfonamides; Z91.030 Bee allergy status; Z91.048 Other nonmedicinal substance allergy status; Z20.822 Contact with and (suspected) exposure to COVID-19; Z98.1 Arthrodesis status

== ENCOUNTER → 2022-06-25 | Outpatient (CLI) | payer OTHER ==
[~2022-06-25] MED LIST changes: +LEVO1TAB40 PO
[2022-06-25 16:41] LABS: HEMATOCRIT 42.5 % (36.0-47.0); MEAN CORPUSCULAR HEMOGLOBIN 30.6 pg (27.0-33.0); MEAN CORPUSCULAR HGB CONC 32.9 g/dl (32.0-36.5); PLATELET COUNT, AUTOMATED 299 10^3/uL (150-450); RED BLOOD COUNT 4.57 10^6/uL (4.00-5.40); WHITE BLOOD COUNT 7.1 10^3/uL (4.0-10.0)
[2022-06-25 23:20] LABS: ALBUMIN 4.1 GM/DL (3.2-5.2); ALT/SGPT 18 U/L (12-78); BILIRUBIN,TOTAL 0.6 MG/DL (0.2-1.0); BLOOD UREA NITROGEN 11 MG/DL (7-18); CALCIUM LEVEL 9.1 MG/DL (8.5-10.1); CARBON DIOXIDE LEVEL 27 MEQ/L (21-32); CHLORIDE LEVEL 106 MEQ/L (98-107); CREATININE FOR GFR 0.69 MG/DL (0.55-1.30); GLOMERULAR FILTRATION RATE > 60.0 (>60); GLUCOSE, FASTING 96 MG/DL (70-100); POTASSIUM SERUM 4.2 MEQ/L (3.5-5.1); SODIUM LEVEL 140 MEQ/L (136-145); TOTAL PROTEIN 7.5 GM/DL (6.4-8.2)
[2022-06-26 00:13] LABS: HEMOGLOBIN A1c 5.6 %
== END ==
LOC: M WUC 10:42
PROVIDERS: ATTEND Nurse Practitioner Adult Health
DX: Z00.00 Encounter for general adult medical examination without abnormal findings (principal); Z83.49 Family history of other endocrine, nutritional and metabolic diseases; Z13.1 Encounter for screening for diabetes mellitus

== ENCOUNTER → 2023-07-16 | Outpatient (REF) | payer OTHER ==
[2023-07-16 17:09] LABS: HEMATOCRIT 40.7 % (36.0-47.0); HEMOGLOBIN 13.5 g/dl (12.0-15.5); MEAN CORPUSCULAR HEMOGLOBIN 30.4 pg (27.0-33.0); MEAN CORPUSCULAR HGB CONC 33.2 g/dl (32.0-36.5); MEAN CORPUSCULAR VOLUME 91.7 fl (80.0-96.0); PLATELET COUNT, AUTOMATED 299 10^3/uL (150-450); RED BLOOD COUNT 4.44 10^6/uL (4.00-5.40); WHITE BLOOD COUNT 6.3 10^3/uL (4.0-10.0)
[2023-07-16 17:29] LABS: ALKALINE PHOSPHATASE 56 U/L (46-116); ALT/SGPT 15 U/L (7.0-40); AST/SGOT < 8 U/L (<34); BILIRUBIN,TOTAL 0.5 MG/DL (0.3-1.2); BLOOD UREA NITROGEN 11 MG/DL (9-23); CARBON DIOXIDE LEVEL 27 MMOL/L (20-31); CHLORIDE LEVEL 106 MMOL/L (98-107); CREATININE FOR GFR 0.61 MG/DL (0.55-1.30); GLOMERULAR FILTRATION RATE > 60.0 (>60); GLUCOSE, FASTING 97 MG/DL (60-100); POTASSIUM SERUM 3.9 MMOL/L (3.5-5.1); SODIUM LEVEL 139 MMOL/L (136-145); TOTAL PROTEIN 7.3 G/DL (5.7-8.2)
[2023-07-16 17:30] LABS: THYROID STIMULATING HORMONE 1.409 uIU/ML (0.55-4.78)
[2023-07-16 17:36] LABS: HEMOGLOBIN A1c 5.1 % (4.0-6.0)
== END ==
LOC: M LABWUC 16:20
PROVIDERS: ATTEND Nurse Practitioner Adult Health
DX: Z00.00 Encounter for general adult medical examination without abnormal findings (principal); Z13.1 Encounter for screening for diabetes mellitus; Z83.49 Family history of other endocrine, nutritional and metabolic diseases